=== PATIENT | female | born 1965 | race Two or more races ===

== ENCOUNTER 2018-11-26 02:18 | Inpatient (IN) | payer MEDICARE, MEDICAID ==
[~2018-11-26] VITALS: Ht 162.6 cm; Wt 111.1 kg
[2018-11-26] MEDS ORDERED: ALBUTEROL FS 2.5 MG/0.5 ML VIAL.NEB NEB STA (02:27)
[2018-11-26] MEDS ORDERED: IPRATROPIUM NEB FS 0.5 MG/2.5 ML AMPUL.NEB NEB STA (02:27)
[2018-11-26] MEDS ORDERED: methylPREDNISolone SOD SUCC 125 MG/2ML VIAL IV ONE (02:30)
[2018-11-26] MEDS ORDERED: IV NS 0.9% 1,000 ML BAG IV ONE (02:30)
--- NOTE | 2018-11-26 02:30 | NUR ---
PT BIBRA C/O SOB. PT 91% ON ROOM AIR, PLACED ON 4L NC, O2 SAT 94%. DENIES COUGH, CHEST PAIN, N/V/D. PT AAOX4. NOTED TACHYCARDIA, MD AWARE. SKIN WARM AND INTACT. NO ACUTE DISTRESS NOTED AT THIS TIME. PLACED ON CONTINUOUS BRICK TESTER, WILL CONTINUE TO MONITOR
--- NOTE | 2018-11-26 02:30 | NUR ---
MD AT BEDSIDE FOR EVALUATION
--- NOTE | 2018-11-26 02:32 | NUR ---
IV INITIATED LAC 18G. LABS DRAWN FROM SITE. COUNTY COURT JUDGE AT BEDSIDE FOR COLLECTION. IV INTACT AND PATENT.
[2018-11-26] MEDS ORDERED: methylPREDNISolone SOD SUCC 125 MG/2ML VIAL ONE (02:39)
[2018-11-26] MEDS ORDERED: IPRATROPIUM NEB FS 0.5 MG/2.5 ML AMPUL.NEB ONE ×2 (02:42→03:47)
[2018-11-26] MEDS ORDERED: ALBUTEROL FS 2.5 MG/0.5 ML VIAL.NEB ONE (02:42)
[2018-11-26 02:45] LABS: BASOPHILS # (AUTO) 0.1 /CMM (0.0-0.2); BASOPHILS % (AUTO) 0.4 % (0.0-2.0); EOSINOPHILS % (AUTO) 0.4 % (0.0-6.0); HEMATOCRIT 45 % (33-45); HEMOGLOBIN 15.1 g/dL (11.5-14.8); LYMPHOCYTES % (AUTO) 15.3 % (20.0-44.0); MEAN CORPUSCULAR HGB CONC 33 g/dl (31.0-36.0); MEAN CORPUSCULAR VOLUME 95 fL (82-100); MONOCYTES # (AUTO) 1.2 /CMM (0.1-1.30); MONOCYTES % (AUTO) 6.3 % (2.0-12.0); NEUTROPHILS # (AUTO) 15.2 /CMM (1.8-8.9); NEUTROPHILS % (AUTO) 77.6 % (43.0-81.0); PLATELET COUNT (AUTO) 222 /CMM (150-450); RED BLOOD CELL COUNT(AUTO) 4.78 MIL/uL (4.0-5.2); WHITE BLOOD COUNT (AUTO) 19.6 K/uL (4.3-11.0)
--- NOTE | 2018-11-26 02:54 | NUR ---
RT AT BEDSIDE
[2018-11-26 02:57] LABS: CALCIUM, SERUM 8.8 mg/dL (8.5-10.1); CARBON DIOXIDE 26 mmol/L (21-32); CHLORIDE 106 mmol/L (98-107); CREATININE 0.9 mg/dL (0.6-1.3); GLUCOSE 127 mg/dL (74-106); POTASSIUM 3.7 mmol/L (3.5-5.1); SODIUM SERUM 145 mmol/L (136-145); UREA NITROGEN, BLOOD 13 mg/dL (7-18)
[2018-11-26 03:04] LABS: ALANINE AMINOTRANSFERASE 19 U/L (12-78); ALBUMIN 3.4 g/dL (3.4-5.0); ALKALINE PHOSPHATASE 104 U/L (46-116); ASPARTATE AMINOTRANSFERASE 10 U/L (15-37); BILIRUBIN,DIRECT 0.1 mg/dL (0.0-0.2); BILIRUBIN,TOTAL 0.2 mg/dL (0.2-1.0); TOTAL PROTEIN, SERUM 6.8 g/dL (6.4-8.2)
--- NOTE | 2018-11-26 03:16 | NUR ---
PT UNABLE TO PROVIDE URINE SAMPLE AT THIS TIME, AWARE
--- NOTE | 2018-11-26 03:17 | NUR ---
RADIOLOGY AT BEDSIDE FOR CXR
[2018-11-26] MEDS ORDERED: ALBUTEROL FS 2.5 MG/3 ML VIAL.NEB NEB ONE ×2 (03:30)
[2018-11-26] MEDS ORDERED: IPRATROPIUM NEB FS 0.5 MG/2.5 ML AMPUL.NEB NEB ONE ×2 (03:30)
--- NOTE | 2018-11-26 03:30 | NUR ---
URINE COLLECTED AND SENT TO LAB
--- NOTE | 2018-11-26 03:30 | NUR ---
PER VERBAL MD ORDER, WILL ADMINISTER 2L NS INSTEAD OF 3200ML NS ORDERED
[2018-11-26] MEDS ORDERED: ALBUTEROL FS 2.5 MG/3 ML VIAL.NEB ONE (03:45)
[2018-11-26] MEDS ORDERED: ACETAMINOPHEN 325 MG TABLET ONE (03:47)
--- NOTE | 2018-11-26 03:50 | NUR ---
RT AT BEDSIDE FOR BREATHING TREATMENT
[2018-11-26 03:59] LABS: APPEARANCE,URINE Clear (CLEAR); BILIRUBIN,URINE Negative (NEGATIVE); BLOOD, URINE Negative Ery/uL (NEGATIVE); COLOR,URINE Yellow (YELLOW); KETONES,URINE Negative (NEGATIVE); LEUKOCYTE ESTERASE ,URINE Negative (NEGATIVE); NITRITE, URINE Negative (NEGATIVE); PROTEIN,URINE Negative (NEGATIVE); UGLUCOSE Negative (NEGATIVE); UROBILINOGEN,URINE 0.2 EU/dL (0.2)
[2018-11-26] MEDS ORDERED: ACETAMINOPHEN 325 MG TABLET PO ONE (04:00)
[2018-11-26] MEDS ORDERED: VANCOMYCIN 1.25 GM in IV D5W 500 ML IV ONE (05:00)
[2018-11-26] MEDS ORDERED: PIPERACILLIN /TAZOBACTAM 3.375 G in IV D5W 50 ML IV ONE (05:00)
--- NOTE | 2018-11-26 05:08 | NUR ---
PT REC'D 3 BREATHING TREATMENT, REMAINS DESATURATING ON ROOM AIR. PLACED ON SIMPLE MASK 6L, O2 SAT 95%
[2018-11-26] MEDS ORDERED: PIPERACILLIN /TAZOBACTAM 3.375 G VIAL IV ONE (05:19)
[2018-11-26] MEDS ORDERED: Magnesium 1GM/D5W 100ML PREMIX 200 ML IV ONE (05:19)
[2018-11-26] MEDS ORDERED: VANCOMYCIN 1 GM VIAL ONE ×2 (05:19→05:49)
[2018-11-26] MEDS ORDERED: Magnesium 1 GM/2 ML VIAL IV ONE (05:30)
[2018-11-26] MEDS ORDERED: VANCOMYCIN 500 MG VIAL ONE (05:47)
[2018-11-26] MEDS ORDERED: CEFTRIAXONE 1 G in IV D5W 50 ML IV SCH (06:00)
[2018-11-26] MEDS ORDERED: AZITHROMYCIN 500 MG in IV D5W 250 ML IV SCH (06:00)
[2018-11-26] MEDS ORDERED: ACETAMINOPHEN 325 MG TABLET PO PRN (06:00)
[2018-11-26] MEDS ORDERED: ONDANSETRON HCL/PF 4 MG/2 ML VIAL IVP PRN (06:00)
--- NOTE | 2018-11-26 06:11 | NUR ---
PT AMBULATORY TO RESTROOM WITH STEADY GAIT
--- NOTE | 2018-11-26 07:27 | NUR ---
RECEIVED REPORT FROM ED
--- NOTE | 2018-11-26 07:27 | NUR ---
GAVE REPORT TO MARTINEZ SANTANA FOR [place]
[2018-11-26] MEDS: ALBUTEROL FS 2.5 MG/0.5 ML VIAL.NEB NEB SCH ×4 (07:35→19:07)
[2018-11-26] MEDS: IPRATROPIUM NEB FS 0.5 MG/2.5 ML AMPUL.NEB NEB SCH ×4 (07:35→19:07)
[2018-11-26 08:00] VITALS: BP 141/72
[2018-11-26] MEDS ORDERED: METH5TAB6 PO (08:09)
[2018-11-26] MEDS ORDERED: LURA80TA PO (08:09)
[2018-11-26] MEDS ORDERED: CLON1TAB PO (08:09)
[2018-11-26] MEDS ORDERED: DIPH25TA62 PO (08:09)
--- NOTE | 2018-11-26 08:21 | NUR ---
PATIENT TRANSFERRED TO ROOM 111-2 VIA ACLS PROTOCOL. PATIENT A/OX4, ON 6LPM VIA SIMPLE MASK.
--- NOTE | 2018-11-26 08:30 | NUR ---
CIGARETTE CARTON SEALER NOTES RECEIVED PATIENT FROM ED VIA [facility].
[2018-11-26 09:00] VITALS: BP 141/72
[2018-11-26] MEDS: methylPREDNISolone SOD SUCC 125 MG/2ML VIAL IV SCH ×3 (09:21→17:57)
[2018-11-26] MEDS: CEFTRIAXONE 1 G in IV D5W 50 ML IV SCH (09:21)
[2018-11-26] MEDS: GUAIFENESIN LA 600 MG TABLET.SA PO SCH ×2 (09:21→21:16)
--- NOTE | 2018-11-26 10:14 | NUR ---
ANODE ADJUSTER ADMITTING NOTES RECEIVED PATIENT FROM ED VIA [facility] ON 6 LTRS MASK. PATIENT A/O X4 NO SIGSN OR SYMPTOMS OF RESPIRATING DISTRESS NOTED SOB WHILE AMBULATORY AND COUGH WITH SMALL YELLOW SPUTUM. NO C/O PAIN .VITAL SIGNS T 98.4 HR 111 B/P 141/72 RR 18 SAT 94% ON 6 LTRS. AMBULATORY WITHOUT ASSISTANCE REFUSING PHOTOS SKIN INTACT. IV TO LAC #18 GAUGE. BREAKFAST TRAY BROUGHT AND PATIENT APPETITE GOOD. IV ATB RUNNING NO ADVERSE RXN NOTED. ORIENTATED TO ROOM AND CALL SYSTEM SAFETY PRECAUTIONS IN PLACE BED IN LOW POSITION CALL LIGHT WITHIN REACH. WILL MONITOR ACCORDINGLY
[2018-11-26] MEDS: AZITHROMYCIN 500 MG in IV D5W 250 ML IV SCH (10:36)
[2018-11-26 12:00] VITALS: BP 132/72
[2018-11-26 16:00] VITALS: BP 105/65
[2018-11-26] MEDS: LACTOBACILLUS RHAMNOSUS GG 1 EACH CAP.SPRINK PO SCH (17:57)
--- NOTE | 2018-11-26 18:21 | NUR ---
CENTRIFUGAL OPERATOR NOTES NO SIGNIFICANT CHANGES THROUGHOUT THE DAY. PATIENT A/O X4 NO SIGNS OR SYMPTOMS OF RESPIRATORY DISTRESS ON 6 LTRS NASAL CANNULA SATURATING 94 % . NO S/O ACUTE PAIN. ATB GIVEN ORDERED NO ADVERSE RXN NOTED. AMBULATORY IN ROOM AND TO BATHROOM.APPETITE GOOD NO N/V/D NO EPISODES OF MANIC BIPOLAR NOTED. PATIENT SLEEPING MOST OF DAY. IV SALINE LOCK TO LAC # 18 GAUGE PATENT AND GOOD BLOOD RETURN. SAFETY AND FALL PRECAUTIONS IN PLACE BED IN MOW LOCKED POSITION. ABLE TO MAKE NEEDS KNOWN AND ALL MET BY STAFF. CALL LIGHT WITHIN REACH
--- NOTE | 2018-11-26 19:07 | NUR ---
REPORT ENDORSED TO NOC
--- NOTE | 2018-11-26 19:50 | NUR ---
TELEVISION SCHEDULE COORDINATOR NOTES PATIENT SEATING ON BED, BREATHING EVEN AND UNLABORED, A/O X4 NO S/S OF SOB/ RESPIRATORY DISTRESS ON 6 LT NASAL CANNULA SATURATING 93-96 % , NO C/O ACUTE PAIN OR DISCOMFORT AT THIS TIME, NO BEHAVIORAL CHANGES NOTED, PIV LAC S/L # 18G, PATENT AND INTACT, ALL SAFETY AND FALL PRECAUTIONS IN PLACE. BED LOCKED AND LOW POSITION, CALL LIGHT WITHIN REACH, WILL CONTINUE TO MONITOR CLOSELY.
[2018-11-26 20:00] VITALS: BP 141/85
[2018-11-26] MEDS: METHIMAZOLE (5MG) 5 MG TABLET PO SCH (21:18)
[2018-11-27] VITALS (7 sets, daily range): BP systolic 90–141; BP diastolic 45–82
[2018-11-27] MEDS: ALBUTEROL FS 2.5 MG/0.5 ML VIAL.NEB NEB SCH ×4 (00:40→19:36)
[2018-11-27] MEDS: IPRATROPIUM NEB FS 0.5 MG/2.5 ML AMPUL.NEB NEB SCH ×4 (00:41→19:36)
--- NOTE | 2018-11-27 06:45 | NUR ---
DIETARY SERVICES MANAGER NOTES PATIENT SLEEPING IN BED, BUT EASILY AROUSABLE TO TACTILE STIMULI, BREATHING EVEN AND UNLABORED, NO S/S OF SOB/ RESPIRATORY DISTRESS , CONT 6L SIMPLE MASK SATURATING 93-96 % , NO C/O ACUTE PAIN OR DISCOMFORT AT THIS TIME, NO BEHAVIORAL CHANGES NOTED, PIV LAC S/L # 18G, PATENT AND INTACT, ALL SAFETY AND FALL PRECAUTIONS IN PLACE, NO SIGNIFICANT CHANGE IN CONDITION DURING THE NIGHT, BED LOCKED AND LOW POSITION, CALL LIGHT WITHIN REACH, WILL ENDORSE TO ONCOMING NURSE FOR CONTINUITY OF CARE.
[2018-11-27 06:58] LABS: BASOPHILS % (AUTO) 0.1 % (0.0-2.0); HEMATOCRIT 41 % (33-45); HEMOGLOBIN 13.6 g/dL (11.5-14.8); LYMPHOCYTES # (AUTO) 1.6 /CMM (0.8-4.8); LYMPHOCYTES % (AUTO) 10.6 % (20.0-44.0); MEAN CORPUSCULAR HGB CONC 33 g/dl (31.0-36.0); MEAN CORPUSCULAR VOLUME 95 fL (82-100); MONOCYTES # (AUTO) 0.8 /CMM (0.1-1.30); MONOCYTES % (AUTO) 5.5 % (2.0-12.0); NEUTROPHILS # (AUTO) 12.6 /CMM (1.8-8.9); NEUTROPHILS % (AUTO) 83.8 % (43.0-81.0); PLATELET COUNT (AUTO) 197 /CMM (150-450); RED BLOOD CELL COUNT(AUTO) 4.28 MIL/uL (4.0-5.2)
--- NOTE | 2018-11-27 08:00 | NUR ---
TELE1/RN AM SHIFT INITIAL NOTES RECEIVED PT ASLEEP IN BED, EASILY AROUSED, PT A/O X 4, DENIES HAVING RESPIRATORY DISTRESS, BUT NOTED LABORED BREATHING UPON EXERTION, ON 6L O2 VIA SIMPLE MASK, SATURATING @ 94%, LUNG SOUNDS DIMINISHED. ON TELE WITH SINUS RHYTHM, HR 89. IV SITE FLUSHED, PATENT WITH NO S/S OF INFECTION, SL. PT IS COMFORTABLE, SCHEDULED AM MEDS TO BE GIVEN. CL WITHIN REACHED AND SAFETY MAINTAINED. ON GOING MONITORING.
[2018-11-27 08:04] LABS: BILIRUBIN,TOTAL 0.1 mg/dL (0.2-1.0); CALCIUM, SERUM 8.8 mg/dL (8.5-10.1); CREATININE 0.8 mg/dL (0.6-1.3); MAGNESIUM 2.2 mg/dL (1.8-2.4); PHOSPHORUS 3.7 mg/dL (2.5-4.9); POTASSIUM 4.6 mmol/L (3.5-5.1); TOTAL PROTEIN, SERUM 6.2 g/dL (6.4-8.2)
[2018-11-27] MEDS: GUAIFENESIN LA 600 MG TABLET.SA PO SCH ×2 (08:17→21:39)
[2018-11-27] MEDS: LACTOBACILLUS RHAMNOSUS GG 1 EACH CAP.SPRINK PO SCH ×2 (08:17→17:46)
[2018-11-27] MEDS: methylPREDNISolone SOD SUCC 125 MG/2ML VIAL IV SCH ×3 (08:19→17:46)
[2018-11-27] MEDS: CEFTRIAXONE 1 G in IV D5W 50 ML IV SCH (08:20)
[2018-11-27] MEDS ORDERED: clonazePAM 1 MG TABLET PO SCH (09:00)
[2018-11-27] MEDS: AZITHROMYCIN 500 MG in IV D5W 250 ML IV SCH (09:45)
--- NOTE | 2018-11-27 12:00 | NUR ---
TELE1/RN NOON ROUNDS PT NOTED STILL HAVING LABORED BREATHING ON EXERTION. MONITORING CONTINUED.
--- NOTE | 2018-11-27 19:00 | NUR ---
TELE1/RN AM SHIFT END NOTES ALL NEEDS MET. NO ACUTE CHANGE OF CONDITION NOTED DURING THE SHIFT. NOTED LABORED BREATHING DURING THE SHIFT ON EXERTION. PT ENDORSED TO PM NURSE TO CONTINUE CARE. CL WITHIN REACHED AND SAFETY MAINTAINED.
--- NOTE | 2018-11-27 20:02 | NUR ---
ACID ADJUSTER OPENING NOTES RECEIVED REPORT FROM CHILANGO SANTANA. PATIENT A/A/O X4. BREATHING EVEN & UNLABORED, TOLERATING ROOM AIR @ THIS TIME BUT PREFERS O2 @ 6LPM VIA SIMPLE MASK NEEDED. DENIES ANY SOB OR DIFFICULTY BREATHING. ON TELE W/ SINUS RHYTHM, HR 90S. LEFT ACIV #20 INTACT & PATENT W/ DRESSING CDI, SALINE LOCKED. DENIES ANY PAIN OR DISCOMFORT @ THIS TIME. SAFETY MEASURES IN PLACE W/ SIDERAILS UP CALL LIGHT WITHIN REACH. ABLE TO AMBULATE INDEPENDENTLY BUT INSTRUCTED TO CALL FOR ASSISTANCE. WILL CONTINUE TO MONITOR.
[2018-11-27] MEDS: diphenhydrAMINE HCL 50 MG CAPSULE PO PRN (21:39)
[2018-11-27] MEDS: METHIMAZOLE (5MG) 5 MG TABLET PO SCH (21:39)
[2018-11-27] MEDS: clonazePAM 1 MG TABLET PO SCH (21:39)
[2018-11-28] VITALS: BP 102/58
[2018-11-28] MEDS: IPRATROPIUM NEB FS 0.5 MG/2.5 ML AMPUL.NEB NEB SCH ×4 (01:40→19:54)
[2018-11-28] MEDS: ALBUTEROL FS 2.5 MG/0.5 ML VIAL.NEB NEB SCH ×4 (01:40→19:54)
[2018-11-28 04:00] VITALS: BP 108/55
--- NOTE | 2018-11-28 07:42 | NUR ---
CHARGE MANAGER OPENING NOTES\ RECEIVED REPORT FROM LICENSED MORTICIAN RN. PT IS SITTING SEMI GASTON IN BED EATING BREAKFAST. PT DENIES ANY SOB OR PAIN AT PRESENT MOMENT. ON MONITOR PT HEART RATE IS SR AT 100. PER REPORT PT IS ABLE TO AMBULATE TO BATHROOM HOWEVER DISCUSSED WITH PT TO USE CALL LIGHT WHEN SHE FEELS THE URGE TO GET UP FOR SAFETY PRECAUTIONS. BED IS LOCKED AND IN LOWEST POSITION WILL CONTINUE TO MONITOR.
[2018-11-28 08:00] VITALS: BP_SYST 135; BP_SYST 138; BP_DIAS 77; BP_DIAS 87
[2018-11-28 08:01] LABS: BASOPHILS % (AUTO) 0.1 % (0.0-2.0); HEMATOCRIT 43 % (33-45); HEMOGLOBIN 14.3 g/dL (11.5-14.8); LYMPHOCYTES # (AUTO) 1.6 /CMM (0.8-4.8); LYMPHOCYTES % (AUTO) 11.3 % (20.0-44.0); MEAN CORPUSCULAR HGB CONC 34 g/dl (31.0-36.0); MEAN CORPUSCULAR VOLUME 96 fL (82-100); MONOCYTES # (AUTO) 0.8 /CMM (0.1-1.30); MONOCYTES % (AUTO) 5.8 % (2.0-12.0); NEUTROPHILS # (AUTO) 11.8 /CMM (1.8-8.9); NEUTROPHILS % (AUTO) 82.8 % (43.0-81.0); PLATELET COUNT (AUTO) 196 /CMM (150-450); RED BLOOD CELL COUNT(AUTO) 4.45 MIL/uL (4.0-5.2); WHITE BLOOD COUNT (AUTO) 14.3 K/uL (4.3-11.0)
[2018-11-28 08:09] LABS: CALCIUM, SERUM 8.8 mg/dL (8.5-10.1); CREATININE 0.8 mg/dL (0.6-1.3); MAGNESIUM 2.2 mg/dL (1.8-2.4); PHOSPHORUS 4.2 mg/dL (2.5-4.9); POTASSIUM 4.6 mmol/L (3.5-5.1)
[2018-11-28] MEDS: CEFTRIAXONE 1 G in IV D5W 50 ML IV SCH (10:08)
[2018-11-28] MEDS: methylPREDNISolone SOD SUCC 125 MG/2ML VIAL IV SCH ×3 (10:08→16:41)
[2018-11-28] MEDS: GUAIFENESIN LA 600 MG TABLET.SA PO SCH ×2 (10:08→21:38)
[2018-11-28] MEDS: LACTOBACILLUS RHAMNOSUS GG 1 EACH CAP.SPRINK PO SCH ×2 (10:08→16:41)
[2018-11-28] MEDS: AZITHROMYCIN 500 MG in IV D5W 250 ML IV SCH (11:11)
[2018-11-28 16:00] VITALS: BP_SYST 117; BP_DIAS 59; BP_DIAS 89
--- NOTE | 2018-11-28 19:15 | NUR ---
MS RN OPENING NOTES RECEIVED REPORT FROM NIGHT AM RN. PATIENT IS SITTING ON SIDE OF THE BED, FEET DANGLING. PATIENT ON ROOM AIR, PATIENT DENIES ANY SOB OR PAIN AT THIS TIME. RR EVEN AND UNLABORED. PER REPORT, PT IS ABLE TO AMBULATE TO BATHROOM, HOWEVER DISCUSSED WITH PT TO USE CALL LIGHT WHEN SHE FEELS THE URGE TO GET UP FOR SAFETY PRECAUTIONS. SAFETY MEASURES MAINTAINED; CALL LIGHT WITHIN REACH, BED LOCKED AND IN LOWEST POSITION. WILL CONTINUE TO MONITOR.
--- NOTE | 2018-11-28 19:25 | NUR ---
RN MS CLOSING NOTES GAVE REPORT TO INVENTORY CONTROL ANALYST RN. PT IS SITTING SEMI GASTON IN BED WATCHING TV. PT DENIES ANY SOB OR PAIN AT PRESENT MOMENT. PER REPORT PT IS ABLE TO AMBULATE TO BATHROOM HOWEVER DISCUSSED WITH PT TO USE CALL LIGHT WHEN SHE FEELS THE URGE TO GET UP FOR SAFETY PRECAUTIONS. BED IS LOCKED AND IN LOWEST POSITION WILL ENDORSE CONTINUITY OF CARE TO INVENTORY CONTROL ANALYST RN.
--- NOTE | 2018-11-28 19:30 | NUR ---
MS RN NOTES PATIENT SATURATION 88 ON ROOM AIR. PT REQUESTS FOR OXYGEN MASK INSTEAD OF NASAL CANNULA. PUT PATIENT ON 6L NC. RECHECKED O2SAT NOW 93%. PT NOT ON ANY DISTRESS. RR EVEN AND UNLABORED. DISCUSSED WITH PT TO NOT REMOVE MASK. WILL CONT TO MONITOR.
[2018-11-28 20:00] VITALS: BP 140/80
[2018-11-28] MEDS: clonazePAM 1 MG TABLET PO SCH (21:38)
[2018-11-28] MEDS: METHIMAZOLE (5MG) 5 MG TABLET PO SCH (21:38)
[2018-11-28] MEDS: diphenhydrAMINE HCL 50 MG CAPSULE PO PRN (21:49)
[2018-11-29] MEDS: ALBUTEROL FS 2.5 MG/0.5 ML VIAL.NEB NEB SCH ×2 (01:30→06:59)
[2018-11-29] MEDS: IPRATROPIUM NEB FS 0.5 MG/2.5 ML AMPUL.NEB NEB SCH ×2 (01:30→06:59)
[2018-11-29 04:00] VITALS: BP 128/62
[2018-11-29 06:31] LABS: BASOPHILS % (AUTO) 0.1 % (0.0-2.0); HEMATOCRIT 43 % (33-45); HEMOGLOBIN 14.4 g/dL (11.5-14.8); LYMPHOCYTES # (AUTO) 1.6 /CMM (0.8-4.8); LYMPHOCYTES % (AUTO) 12.9 % (20.0-44.0); MEAN CORPUSCULAR HGB CONC 34 g/dl (31.0-36.0); MEAN CORPUSCULAR VOLUME 95 fL (82-100); MONOCYTES # (AUTO) 0.7 /CMM (0.1-1.30); MONOCYTES % (AUTO) 5.5 % (2.0-12.0); NEUTROPHILS # (AUTO) 10.4 /CMM (1.8-8.9); NEUTROPHILS % (AUTO) 81.5 % (43.0-81.0); PLATELET COUNT (AUTO) 215 /CMM (150-450); RED BLOOD CELL COUNT(AUTO) 4.49 MIL/uL (4.0-5.2); WHITE BLOOD COUNT (AUTO) 12.8 K/uL (4.3-11.0)
--- NOTE | 2018-11-29 06:45 | NUR ---
MS RN CLOSING NOTES PATIENT SLEEPING IN BED, BUT EASY TO AROUSE. NO ACUTE CHANGES THROUGHOUT SHIFT. PATIENT CURRENTLY ON ROOM AIR, PATIENT DENIES ANY SOB OR PAIN AT THIS TIME. RR EVEN AND UNLABORED. SAFETY MEASURES MAINTAINED; CALL LIGHT WITHIN REACH, BED LOCKED AND IN LOWEST POSITION. ALL MD ORDERS ATTENDED. ALL NEEDS ANTICIPATED AND MET. WILL ENDORSE TO AM RN FOR [place].
[2018-11-29 07:08] LABS: CALCIUM, SERUM 8.8 mg/dL (8.5-10.1); CREATININE 0.9 mg/dL (0.6-1.3); MAGNESIUM 2.3 mg/dL (1.8-2.4); POTASSIUM 4.4 mmol/L (3.5-5.1)
[2018-11-29 08:00] VITALS: BP 106/58
--- NOTE | 2018-11-29 08:00 | NUR ---
MS RN NOTE PATIENT SLEEPING IN BED, BUT EASY TO AROUSE.RESTING COMFORTABLY DAVEY PATIENT CURRENTLY ON ROOM AIR, PATIENT DENIES ANY SOB OR PAIN AT THIS TIME. RR EVEN AND UNLABORED. SAFETY MEASURES MAINTAINED; CALL LIGHT WITHIN REACH, BED LOCKED AND IN LOWEST POSITION. ALL NEEDS ANTICIPATED AND MET. WILL CONT TO MONITOR, RT HAND HL INTACT NO S\S INFECTION NOTED
[2018-11-29] MEDS: methylPREDNISolone SOD SUCC 125 MG/2ML VIAL IV SCH ×3 (08:47→16:06)
[2018-11-29] MEDS: GUAIFENESIN LA 600 MG TABLET.SA PO SCH (08:47)
[2018-11-29] MEDS: LACTOBACILLUS RHAMNOSUS GG 1 EACH CAP.SPRINK PO SCH ×2 (08:48→16:06)
[2018-11-29] MEDS: CEFTRIAXONE 1 G in IV D5W 50 ML IV SCH (08:48)
[2018-11-29] MEDS: AZITHROMYCIN 500 MG in IV D5W 250 ML IV SCH (09:39)
[2018-11-29] MEDS ORDERED: ALBU8.5H8 INH (10:49)
[2018-11-29] MEDS ORDERED: PRED20TA PO (10:49)
[2018-11-29] MEDS ORDERED: AMOX-427 PO (10:49)
--- NOTE | 2018-11-29 12:00 | NUR ---
MS RN NOTE HAVING LUNCH , ABLE TO EAT SELF NO SOB NOTED
--- NOTE | 2018-11-29 14:39 | NUR ---
MS MAX NOTE ASSISTED BR , ABLE TO AMBULATE SELF WITH STAND BY [id number] Addendum: 11/29/18 at 1440 by WILLIE SWIFT RN PER DR TAMIKA SILVERMAN TO DISCHARGE HOME ,CHARGE NURSE SPOKE WITH SISTER SITED STATED THAT WILL BUYING AGENT SOON, WILL F\U
--- NOTE | 2018-11-29 16:37 | NUR ---
MS RN NOTE DISCHARGE INSTRUCTION GIVEN , UNDERSTOOD, HL ON RT HAND REMOVED ,NO BLEEDING NOTED , PX GIVEN,EMPLANED HOW TAKE NEW AND HOME MEDICATION WITH POSSIBLE SIDE EFFECTS , TAKEN TO LOBBY BY WAILING WITH STABLE CONDITION WITH JEAN, RYAN [place], CALLED SISTER TO PICKUP PATIENT, STATED THAT WILL AWAIT ON FROM HOSPITAL ON TAXI
--- NOTE | 2018-11-29 16:38 | NUR ---
MS RN NOTE CHARGE NURSE TOOK PATIENT TO FAMILY CAR , PATENT WAS ALERT , ORIENTED , WITH STABLE CONDITION , NO C\O ANY DISCOMFORT , EXPLAINED AGAIN TO CONT HOME MEDS ORDERED ,ASKED SISTER OR MOTHER TO COME TO FLOOR TO EXPLAINED MORE ABOUT DISCHARGE BUT REFUSED
--- NOTE | 2018-11-29 17:30 | NUR ---
MS RN NOTE RECEIVED CALL FROM FAMILY MOTHER STATED THAT PATIENT DID NOT HAVE HER LATUDA MED IN HOSPITAL , RECHECKED EMAR WAS NOT ORDERED , ALSO EXPLAINED TO FAMILY TO CONT HOME MEDS ,STILL VERY UPSET ABOUT THAT WAS NOT GIVEN IN HOSPITAL, PER MED RECON WAS HELD, PER MD ORDERED, EXPLAINED TO FAMILY IF PATIENT STILL NOT FEELING WELL GO TO CLOSEST ER , , STILL VERY UPSET STATED THAT SHE WILL [facility] NURSING YOU , REPORTED THAT TO CHARGE NURSE SOON , AND CALL TO CYTOPATHOLOGY TECHNOLOGIST HUBERT , EXPLAINED ABOUT FAMILY ISSUE,
== END 2018-11-29 18:15 | disposition home or self-care (01) | DRG 202 ==
LOC: ER 02:21 → TELE 05:25 → TELE1 06:55 → MEDSG1 11-28 10:20
PROVIDERS: ADMIT Nurse Practitioner Acute Care; ATTEND Student in an Organized Health Care Education/Training Program
DX: J45.901 Unspecified asthma with (acute) exacerbation (principal); J18.9 Pneumonia, unspecified organism; Z68.41 Body mass index [BMI] 40.0-44.9, adult; F31.9 Bipolar disorder, unspecified; E66.9 Obesity, unspecified; Z87.891 Personal history of nicotine dependence; D72.829 Elevated white blood cell count, unspecified; F41.9 Anxiety disorder, unspecified
CPT/HCPCS: 36415; 71045-TC; 80048-TC; 80053-TC; 80076-TC; 81000-TC; 83605-TC; 83735-TC; 84100-TC; 84484-TC; 85025-TC; 85730-TC; 87040-TC; 87081-TC; 87086-TC; 94799-TC; G0378; J0456; J0696; J2543; J2930; J3370; J3475; J7030; J7060; Q0163

== ENCOUNTER 2018-11-29 18:07 | Emergency (ER) | payer MEDICAID, MEDICARE ==
[~2018-11-29] VITALS: Ht 162.6 cm; Wt 111.1 kg
[~2018-11-29 18:07] MED LIST: ALBU8.5H8 INH; AMOX-427 PO; CLON1TAB PO; DIPH25TA62 PO; LURA80TA PO; METH5TAB6 PO; PRED20TA PO
--- NOTE | 2018-11-29 18:55 | NUR ---
PATIENT A/OX1-2, FAMILY AT BEDSIDE, NO DISTRESS NTOED, ON ROOM AIR WITH SPO2 OF 94%. ATTACHED TO THE MONITOR. WILL MONITOR./
--- NOTE | 2018-11-29 18:58 | NUR ---
CALLED NURSING SUP; PT WAS D/C TODAY FROM [facility], FAMILY WANTING TO GET PT RE-ADMITTED TO [facility] D/T LETHARGY AND UNABLE TO F/U WITH D/C MEDS. NURSING SUP WILL F/U
[2018-11-29] MEDS ORDERED: AMOX/CLAVULANATE 875 MG TABLET PO ONE (19:00)
[2018-11-29] MEDS ORDERED: ALBUTEROL FS 2.5 MG/3 ML VIAL.NEB NEB ONE (19:00)
[2018-11-29] MEDS ORDERED: IPRATROPIUM NEB FS 0.5 MG/2.5 ML AMPUL.NEB NEB ONE (19:00)
--- NOTE | 2018-11-29 19:00 | NUR ---
FAMILY IS CONCERNED ABOUT PATIENT MISSING HER BIPOLAR MEDICATIONS WHILE SHE WAS ADMITTED.
[2018-11-29] MEDS ORDERED: ALBUTEROL FS 2.5 MG/3 ML VIAL.NEB ONE ×2 (19:08→19:09)
[2018-11-29] MEDS ORDERED: IPRATROPIUM NEB FS 0.5 MG/2.5 ML AMPUL.NEB ONE (19:09)
[2018-11-29] MEDS ORDERED: AMOX/CLAVULANATE 875 MG TABLET ONE (19:12)
[2018-11-29 19:32] LABS: SALICYLATE 4.7 mg/dL (2.8-20.0)
[2018-11-29 19:34] LABS: ACETAMINOPHEN 0 ug/ml (10-30); ALCOHOL, BLOOD < 3 mg/dL (0-0)
--- NOTE | 2018-11-29 19:43 | NUR ---
ENDORSED TO MARGO SANTANA FOR [place].
--- NOTE | 2018-11-29 20:24 | NUR ---
URINE COLLECTED AND SENT TO LAB
[2018-11-29 20:33] LABS: APPEARANCE,URINE Clear (CLEAR); BILIRUBIN,URINE Negative (NEGATIVE); BLOOD, URINE Negative Ery/uL (NEGATIVE); COLOR,URINE Yellow (YELLOW); KETONES,URINE Negative (NEGATIVE); LEUKOCYTE ESTERASE ,URINE Negative (NEGATIVE); NITRITE, URINE Negative (NEGATIVE); PROTEIN,URINE Trace mg/dl (NEGATIVE); UGLUCOSE Negative (NEGATIVE); UROBILINOGEN,URINE 0.2 EU/dL (0.2)
[2018-11-29 21:00] VITALS: BP 129/85
--- NOTE | 2018-11-29 21:53 | NUR ---
PT AND HER DTR INSISTING ON LEAVING THE HOSPITAL. AND REFUSED TO RECEIVED D/C PAPERS AND AFTER CARE INSTRUCTIONS. BASILIO NICHOLE MADE AWARE.
== END 2018-11-29 21:58 | disposition home or self-care (01) ==
LOC: ER 18:07
DX: J44.9 Chronic obstructive pulmonary disease, unspecified (principal); F17.200 Nicotine dependence, unspecified, uncomplicated; F99 Mental disorder, not otherwise specified; D72.829 Elevated white blood cell count, unspecified; E66.01 Morbid (severe) obesity due to excess calories; Z68.41 Body mass index [BMI] 40.0-44.9, adult; Z79.899 Other long term (current) drug therapy
CPT/HCPCS: 36415; 80305; 80307; 80329; 81001; 94640 ×2; 99284; 99406; G0480; 81000-TC

== ENCOUNTER 2022-11-02 14:08 | Emergency (ER) | payer MEDICARE, OTHER ==
[~2022-11-02] VITALS: Ht 162.6 cm; Wt 108.9 kg
[2022-11-02 14:28] VITALS: BP 135/88
[2022-11-02] MEDS ORDERED: CLON1TAB PO (14:33)
--- NOTE | 2022-11-02 16:34 | NUR ---
Patient discharged to home in stable condition. Written and verbal after care instructions given. Patient verbalizes understanding of instruction.
== END 2022-11-02 16:34 | disposition home or self-care (01) ==
LOC: ER 14:18
DX: F41.9 Anxiety disorder, unspecified (principal); J45.909 Unspecified asthma, uncomplicated; Z60.2 Problems related to living alone; Z79.899 Other long term (current) drug therapy